=== PATIENT | female | born 2000 | race Caucasian/White ===

== ENCOUNTER 2022-02-11 23:36 | Emergency (ER) | payer MEDICAID, SELFPAY ==
[2022-02-12 00:01] VITALS: BP 135/90; PULSE 124; RESP 20; TEMP 36.7; O2SAT 99; BMI 24.1
--- NOTE | 2022-02-12 00:16 | CRLHL7_ITS ---
For Patients: As a result of the Cures Act, medical imaging exams and procedure reports are released immediately into your electronic medical record. You may view this report before your referring provider. If you have questions, please contact your health care provider. INDICATION: Cough. TECHNIQUE: PA and lateral views of the chest. COMPARISON: None. FINDINGS: Normal heart size. Pulmonary vasculature is unremarkable. There are multiple lung masses (1 on the right and at least 2 on the left), which are concerning for metastatic disease. No pleural fluid or pneumothorax. IMPRESSION: Multiple lung masses are noted, which is concerning for metastatic disease. Dictated by Brett Leonardo MD @ 02/12/2022 2:18:48 AM (Electronically Signed)
--- NOTE | 2022-02-12 00:16 | CRLHL7_ITS ---
For Patients: As a result of the Century Cures Act, medical imaging exams and procedure reports are released immediately into your electronic medical record. You may view this report before your referring provider. If you have questions, please contact your health care provider. INDICATION: Pain. TECHNIQUE: Noncontrast axial images with sagittal and coronal reconstructions. COMPARISON: No prior CT. FINDINGS: Lower chest: Normal heart size. No pericardial effusion. Multiple lung masses, with the largest in the left lower lobe measuring 4.3 x 6.1 cm. Abdomen and pelvis: There is a large solid and cystic mass arising from the left kidney, measuring approximately 10 x 15 x 13 cm. This is likely related to a primary malignancy. The unenhanced liver, spleen, pancreas, adrenal glands and right kidney appear unremarkable. No calcified stones in the gallbladder. No significant bile duct dilatation. Normal caliber abdominal aorta. No abnormally dilated bowel to suggest obstruction. Normal appendix. Unremarkable urinary bladder. Uterus is present. No appreciable adnexal mass. Bones: No suspicious bony lesions. IMPRESSION: 1. Large left renal mass measuring up to 15 cm, likely related to a primary malignancy. 2. Multiple masses are seen the lung bases, likely related to metastatic disease. Please note that all CT scans at this facility use dose modulation, iterative reconstruction, and/or weight-based dosing when appropriate to reduce radiation dose to as low as reasonably achievable. Dictated by Brett Leonardo MD @ 02/12/2022 3:20:23 AM (Electronically Signed)
--- NOTE | 2022-02-12 00:17 | ED.GENADULT ---
HPI - General Adult General Time Seen by Provider: 00:17 Date Seen: 02/12/22 Chief complaint: Cough Stated complaint: BACK PAIN THROUGH ABDOMEN,ASTHMA Time Seen by Provider: 02/12/22 00:00 Source: patient Mode of arrival: ambulatory Limitations: no limitations History of Present Illness HPI narrative: 21-year-old female who comes in today with multiple concerns. She reports left-sided back pain which is been going on for a while but worse in last couple days and now radiating to the abdomen. Pain is constant with no relieving or exacerbating factors. She denies urinary symptoms including hematuria, last bowel movement was yesterday. Also reports a cough for about a week, nonproductive. She has a history of asthma, had a cold with sore throat at the beginning of this. No chest pain, some shortness of breath with activity. She has had a history of asthma for which she takes montelukast, albuterol, and is on allergy medications. Last period was couple of weeks ago. Denies lower extremity swelling. Related Data Home Medications Medication Instructions Recorded Confirmed MQ-LX-mohmhe/VC-hjczxy-iodwfqz 2 cap PO PRN 02/12/22 10-5-325mg(d)/15-325-6.25mg capsules (Vicks DayQuil-NyQuil) Mucinex 02/12/22 albuterol sulfate 90 mcg/actuation 2 inh inhalation Q4-6H PRN 02/12/22 02/12/22 aerosol inhaler loratadine 10 mg tablet (Claritin) 10 mg PO DAILY 02/12/22 02/12/22 montelukast 10 mg tablet 10 mg PO DAILY 02/12/22 02/12/22 phenylephrine 5 2 cap PO PRN 02/12/22 mg-dextromethorphan 10 mg-acetaminophen 325 mg capsule (Vicks DayQuil Cold and Flu Relief) Previous Rx's Medication Instructions Recorded benzonatate 200 mg capsule 200 mg PO TID #15 caps 02/12/22 Allergies Allergy/AdvReac Type Severity Reaction Status Date / Time No Known Drug Allergies Allergy Verified 02/12/22 00:09 [facility] Medical History (Updated 02/12/22 @ 02:37 by Lee Juarez MD) Asthma Iron deficiency anemia Scoliosis Social History Smoking Status: Never smoker Do you use any of these nicotine containing products: None Second hand tobacco smoke exposure: No How often do you have a drink containing alcohol: never AUDIT-C Alcohol total score: 0 Non-prescribed substance use: denies use service: No Exam Narrative: Exam Narrative: General: Well-developed and well-nourished, no acute distress Head: Atraumatic and normocephalic Eyes: Pupils are equal reactive, extraocular motions intact, conjunctiva clear ENT: External nose and ears are normal, posterior pharynx without erythema or exudate Neck: No midline cervical tenderness, full spontaneous range of motion the neck, trachea midline, no adenopathy Heart: Tachycardic but regular Lungs: Clear to auscultation bilaterally without wheezes or crackles Abdomen: Mildly distended, left flank tenderness as well as left-sided abdominal tenderness, ?mass on left, no right upper quadrant or right lower quadrant tenderness Musculoskeletal: No tenderness, deformity, or edema Neurologic: Awake, alert, and oriented x3, no gross focal neurologic deficits, cranial nerves intact as tested Psych: Mood and affect are appropriate Skin: No rashes Const: Vital Signs, click to edit/add: Vital Signs - 24 hr 02/12/22 00:01 Temperature 98.1 F Pulse Rate [Left P ulse Oximeter] 124 H Respiratory Rate 20 Blood Pressure [Ri ght Upper Arm] 135/90 H Pulse Oximetry 99 Oxygen Delivery Me thod Room Air Course Course Hospital Course: Patient seen and examined, prior records reviewed. Patient presents with cough as well as left flank and left-sided abdominal pain. On exam, she is tachycardic but not hypoxic. Lungs are clear, concern the cough could be related to her asthma, given tachycardia pulmonary embolism or pneumonia also possible. Chest x-ray and labs ordered. Left flank pain and left-sided abdominal tenderness, could represent kidney stone, constipation also possibility, concern for left-sided abdominal mass on exam. No right-sided tenderness to suggest acute appendicitis or acute cholecystitis. Consider also ovarian cyst with or without rupture, ectopic . Labs and CT scan ordered. IV fluids and Toradol initiated. Reevaluation(s) Reevaluation #1: Labs show anemia which is chronic for the patient by her report, no leukocytosis. Please include views through, test is negative. D-dimer is pending. EKG is reassuring and heart rate has improved. Time: 01:15 Reevaluation #2: Chest x-ray personally reviewed by me demonstrates multiple solid masses in both lungs. Additionally, there is a large mass in the left abdomen that appears to arise from the left kidney, concern for renal tumor. D-dimer is elevated. Concern for malignancy, CT scan of the chest is ordered. Time: 01:30 Reevaluation #3: Updated patient regarding findings on CTs and x-ray. Review of the CT with contrast does appear to show a tumor arising from the left kidney as well as the previously seen pulmonary masses. Radiology interpretations are pending. Time: 02:09 Additional Reevaluation(s): 3:27 a.m. radiology interpretation of the CT with contrast is still pending, interpretation of the noncontrast CT agrees my initial interpretation of large left renal mass related to primary malignancy with metastatic disease in the lung bases bilaterally. Waiting for call back from [facility] doctor md/medical director of the day to discuss possible transfer. 4:03 a.m. rechecked with male, apparently CT images have not arrived. Contacted Radiology to have them recent imaging. 4:[address] Hannah, male clinical coordinator will contact the patient Saturday to schedule follow-up. Patient will need biopsy and then oncology appointment. Discussed this with the patient, she verbalized understanding. I am going to give her dose of steroid to hopefully help some of her cough and sent her home with Brandi Meyer. Vital Signs Vital signs: Initial Vital Signs Temperature 98.1 F 02/12/22 00:01 Temperature Source Temporal Artery Scan 02/12/22 00:01 Pulse Rate 124 H 02/12/22 00:01 Pulse Rhythm 02/12/22 00:01 Respiratory Rate 20 02/12/22 00:01 Blood Pressure 135/90 H 02/12/22 00:01 Blood Pressure Mean 105 02/12/22 00:01 Blood Pressure Position Semi-Fowlers 02/12/22 00:01 Pulse Oximetry 99 02/12/22 00:01 Oxygen Delivery Method 02/12/22 00:01 Vital Signs Temperature 98.1 F 02/12/22 00:01 Pulse Rate 124 H 02/12/22 00:01 Respiratory Rate 20 02/12/22 00:01 Blood Pressure 135/90 H 02/12/22 00:01 Pulse Oximetry 99 02/12/22 00:01 Oxygen Delivery Method 02/12/22 00:01 Temperature 98.1 F 02/12/22 00:01 Pulse Rate 124 H 02/12/22 00:01 Respiratory Rate 20 02/12/22 00:01 Blood Pressure 135/90 H 02/12/22 00:01 Pulse Oximetry 99 02/12/22 00:01 Oxygen Delivery Method 02/12/22 00:01 Medical Decision Making Lab Data Labs: Lab Results 02/12/22 02/12/22 02/12/22 Range/Units 00:35 00:35 00:35 WBC 10.21 (4.50-11.00) K/uL RBC 4.42 (4.00-5.20) m/uL Hgb 10.2 L (12.0-16.0) gm/dL Hct 33.0 (33.0-51.0) % MCV 75 L (80-100) fL MCH 23 L (26-34) pg MCHC 31 L (32-36) gm/dL RDW Coeff of Audra 14.8 (11.5-15.5) % Plt Count 284 (140-440) K/uL Neut % (Auto) 70.8 (42.0-72.0) % Lymph % (Auto) 19.0 L (20-44) % [place] % (Auto) 6.9 (0.0-11.0) % Eos % (Auto) 2.3 (0.0-7.0) % Baso % (Auto) 0.3 (0.0-3.0) % Neut # (Auto) 7.24 H (1.7-7.0) K/uL Lymph # (Auto) 1.90 (0.90-2.90) K/uL [place] # (Auto) 0.70 (0.00-0.90) K/UL Eos # (Auto) 0.23 (0.00-0.50) K/uL Baso # (Auto) 0.03 (0.00-0.30) K/uL Abs Immat Gran (auto) 0.07 (0.00-0.30) K/uL D-Dimer Quant (PE/DVT) 3.55 H (0.00-0.50) ug/ml Sodium 138 (135-149) mmol/L Potassium 3.5 L (3.6-5.1) mmol/L Chloride 101 (96-114) mmol/L Carbon Dioxide 26 (20-32) mmol/L BUN 11 (5-24) mg/dL Creatinine 0.8 (0.6-1.2) mg/dL Estimated Creat Clear 101.78 Estimated GFR 109 ml/min Glucose 113 (60-115) mg/dL Calcium 9.1 (8.7-10.8) mg/dL HCG, Qual (Negative) 02/12/22 Range/Units 00:35 WBC (4.50-11.00) K/uL RBC (4.00-5.20) m/uL Hgb (12.0-16.0) gm/dL Hct (33.0-51.0) % MCV (80-100) fL MCH (26-34) pg MCHC (32-36) gm/dL RDW Coeff of Audra (11.5-15.5) % Plt Count (140-440) K/uL Neut % (Auto) (42.0-72.0) % Lymph % (Auto) (20-44) % [place] % (Auto) (0.0-11.0) % Eos % (Auto) (0.0-7.0) % Baso % (Auto) (0.0-3.0) % Neut # (Auto) (1.7-7.0) K/uL Lymph # (Auto) (0.90-2.90) K/uL [place] # (Auto) (0.00-0.90) K/UL Eos # (Auto) (0.00-0.50) K/uL Baso # (Auto) (0.00-0.30) K/uL Abs Immat Gran (auto) (0.00-0.30) K/uL D-Dimer Quant (PE/DVT) (0.00-0.50) ug/ml Sodium (135-149) mmol/L Potassium (3.6-5.1) mmol/L Chloride (96-114) mmol/L Carbon Dioxide (20-32) mmol/L BUN (5-24) mg/dL Creatinine (0.6-1.2) mg/dL Estimated Creat Clear Estimated GFR ml/min Glucose (60-115) mg/dL Calcium (8.7-10.8) mg/dL HCG, Qual Negative (Negative) Imaging Data Chest x-ray: Attestation: I have reviewed the pertinent imaging results. CT scan - abdomen: Attestation: I have reviewed the pertinent imaging results. ECG Data Attestation: I personally reviewed and interpreted this ECG as follows: Prior ECG tracings: not available for review Interpretation: Performed at 1:12 a.m. demonstrates sinus rhythm rate 102, no acute ST elevations or depressions, normal intervals, normal axis, QTC 424, MO 116. No prior for comparison. Discharge Plan Discharge Clinical Impression: Lung metastases, Renal neoplasm Patient Disposition: Home, Self-Care Condition: Stable Additional Instructions: Your CT scan shows a mass on the left kidney as well as some tumors in the lungs. This likely represents a renal cancer with metastases into the lungs. You will need to follow-up for biopsy of this mass as well as evaluation by Oncology. [facility] will call you on Saturday to arrange these appointments. Activity Level: No Restrictions Discharge Diet: Regular Prescriptions: New benzonatate 200 mg capsule 200 mg PO TID Qty: 15 0RF No Action loratadine [Claritin] 10 mg tablet 10 mg PO DAILY montelukast 10 mg tablet 10 mg PO DAILY Vicks DayQuil Cold-Flu Relief 5-10-325 mg capsule 2 cap PO PRN Vicks DayQuil-NyQuil 10-5-325mg(d)/ 15-325-6.25mg capsule, sequential 2 cap PO PRN Mucinex albuterol sulfate 90 mcg/actuation HFA aerosol inhaler 2 inh inhalation Q4-6H PRN Stand Alone Forms: [facility] Info Instructions
[2022-02-12] MEDS: 0.9 % SODIUM CHLORIDE 1000 ml 1,000 ML IV (00:35)
[2022-02-12] MEDS: KETOROLAC 15 MG/ML inj IVP (00:36)
[2022-02-12 00:51] LABS: Basophils Absolute Auto 0.03 K/uL (0.00-0.30); Basophils Percent Auto 0.3 % (0.0-3.0); Eosinophils Absolute Auto 0.23 K/uL (0.00-0.50); Eosinophils Percent Auto 2.3 % (0.0-7.0); Hemoglobin* 10.2 gm/dL (12.0-16.0); Immature Granulocytes Abs Auto 0.07 K/uL (0.00-0.30); Mean Corpuscular HGB Conc 31 gm/dL (32-36); Mean Corpuscular Hemoglobin 23 pg (26-34); Mean Corpuscular Volume 75 fL (80-100); Monocytes Percent Auto 6.9 % (0.0-11.0); Neutrophils Absolute Auto 7.24 K/uL (1.7-7.0); Neutrophils Percent Auto 70.8 % (42.0-72.0); Platelet Count* 284 K/uL (140-440); RDW Coefficient of Variation % 14.8 % (11.5-15.5); Red Blood Count 4.42 m/uL (4.00-5.20); White Blood Count* 10.21 K/uL (4.50-11.00)
[2022-02-12 00:53] LABS: Slide Review Reflex No
[2022-02-12 01:04] LABS: Chloride* 101 mmol/L (96-114); Potassium* 3.5 mmol/L (3.6-5.1); Sodium* 138 mmol/L (135-149)
[2022-02-12 01:07] LABS: Blood Urea Nitrogen* 11 mg/dL (5-24); Carbon Dioxide* 26 mmol/L (20-32); Creatinine* 0.8 mg/dL (0.6-1.2); Est. Creatinine Clearance* 101.78; Estimated Glomerular Filt Rate 109 ml/min
[2022-02-12 01:08] LABS: Calcium* 9.1 mg/dL (8.7-10.8); Glucose* 113 mg/dL (60-115)
[2022-02-12 01:09] LABS: HCG Qualitative Serum* Negative (Negative)
[2022-02-12 01:13] LABS: D Dimer Quantitative* 3.55 ug/ml (0.00-0.50)
--- NOTE | 2022-02-12 01:33 | CRLHL7_ITS ---
For Patients: As a result of the Century Cures Act, medical imaging exams and procedure reports are released immediately into your electronic medical record. You may view this report before your referring provider. If you have questions, please contact your health care provider. INDICATION: Lung masses and left kidney mass. TECHNIQUE: Axial images. Sagittal and coronal reconstructions. 95 mL Isovue-370 IV contrast. COMPARISON: Noncontrast CT of the abdomen and pelvis from earlier today. FINDINGS: Chest: Normal heart size. No pericardial effusion. Normal caliber thoracic aorta. No acute pulmonary embolus is identified. Multiple pulmonary masses are again noted. Single mass is seen on the right, in the lower lobe, measuring 2.1 x 2.5 cm. Multiple masses are seen on the left with the largest in the left lower lobe measuring 5.3 x 5.7 cm. No pleural fluid. No suspicious bony lesions. Abdomen and pelvis: The liver, gallbladder and bile ducts, spleen, pancreas, adrenal glands and right kidney are unremarkable. There is a large solid and cystic mass in the left kidney, measuring approximately 10 x 15 cm on axial image 48. This extends for approximately 15 cm in craniocaudal dimension. Normal caliber abdominal aorta. No abnormally dilated bowel. No free air. Trace free fluid in the pelvis. A few borderline enlarged left para-aortic lymph nodes are noted. No urinary bladder wall thickening or mass. Uterus is present. No suspicious adnexal mass by CT. No suspicious bony lesions. IMPRESSION: 1. There is a large left renal mass measuring up to 15 cm, which is likely related to a primary malignancy. 2. Multiple pulmonary masses are noted, likely related to metastatic disease. 3. Borderline enlarged left para-aortic lymph nodes are nonspecific. Please note that all CT scans at this facility use dose modulation, iterative reconstruction, and/or weight-based dosing when appropriate to reduce radiation dose to as low as reasonably achievable. Dictated by Brett Leonardo MD @ 02/12/2022 3:39:36 AM (Electronically Signed)
--- NOTE | 2022-02-12 02:00 | ED.NURSE ---
in to discuss test results.
--- NOTE | 2022-02-12 04:36 | ED.NURSE ---
MD guardado cancelling dexamethasone.
== END 2022-02-12 04:37 | disposition home or self-care (01) ==
PROVIDERS: Emergency Provider Family Medicine
DX: D41.00 Neoplasm of uncertain behavior of unspecified kidney (principal); C78.02 Secondary malignant neoplasm of left lung; C78.01 Secondary malignant neoplasm of right lung
CPT/HCPCS: 36415; 71046; 71260; 74176; 74177; 80048; 81001; 84703; 85025; 85379; 93005; 96374; 99285; J1885; J7030; Q9967

== ENCOUNTER 2022-02-16 20:16 | Emergency (ER) | payer MEDICAID, SELFPAY ==
[2022-02-16 20:39] VITALS: BP 137/86; PULSE 143; RESP 18; TEMP 38.6; O2SAT 99; BMI 22.0
--- NOTE | 2022-02-16 21:41 | CRLHL7_ITS ---
For Patients: As a result of the Century Cures Act, medical imaging exams and procedure reports are released immediately into your electronic medical record. You may view this report before your referring provider. If you have questions, please contact your health care provider. INDICATION: Postprocedural cough. Pulmonary masses. TECHNIQUE: CT chest without contrast. COMPARISON: 02/12/2022. FINDINGS: Lungs and pleura: Multiple pulmonary masses again demonstrated are unchanged in size and number. No new or enlarging masses. No pleural effusions, pleural thickening, or pneumothorax. Heart and vasculature: Heart size is normal. Thoracic aorta and pulmonary artery are normal in caliber. Lymph nodes/mediastinum: No mediastinal, hilar, or axillary adenopathy. Chest wall: No masses. Upper abdomen: Large left renal mass again demonstrated.. Bones: Unremarkable for age. IMPRESSION: 1. No postprocedural complications. 2. No acute pulmonary infiltrates and no pneumothorax. No new abnormality to explain cough. 3. Unchanged multiple pulmonary masses and large left renal mass. Please note that all CT scans at this facility use dose modulation, iterative reconstruction, and/or weight-based dosing when appropriate to reduce radiation dose to as low as reasonably achievable. Dictated by Kendall Oconnell MD @ 02/16/2022 11:40:59 PM (Electronically Signed)
--- NOTE | 2022-02-16 22:03 | ED.GENADULT ---
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 Pt had what she describes as a lung biopsy at [place] today and now has fever tachycardia and cant stop coughing. Pt has been eating and drinking without any trouble. No abd pain. No dysuria or hematuria. No overt pain. Pt otherwise feels well but has not received her biopsy results yet. No hemoptysis. Related Data Home Medications Medication Instructions Recorded Confirmed [id number] 2 cap PO PRN 02/12/22 10-5-325mg(d)/15-325-6.25mg capsules (Vicks DayQuil-NyQuil) Mucinex 02/12/22 albuterol sulfate 90 mcg/actuation 2 inh inhalation Q4-6H PRN 02/12/22 02/16/22 aerosol inhaler loratadine 10 mg tablet (Claritin) 10 mg PO DAILY 02/12/22 02/16/22 montelukast 10 mg tablet 10 mg PO DAILY 02/12/22 02/16/22 phenylephrine 5 2 cap PO PRN 02/12/22 mg-dextromethorphan 10 mg-acetaminophen 325 mg capsule (Vicks DayQuil Cold and Flu Relief) hydrocodone 5 mg-acetaminophen 325 tab 02/16/22 mg tablet Previous Rx's Medication Instructions Recorded benzonatate 200 mg capsule 200 mg PO TID #15 caps 02/12/22 Allergies Allergy/AdvReac Type Severity Reaction Status Date / Time Iodinated Contrast Media Allergy Intermediate Difficulty Verified 02/16/22 22:46 Breathing Review of Systems Status of ROS: Reports: 10 or more systems reviewed and unremarkable except as noted in History and below [facility] Medical History (Updated 02/17/22 @ 02:07 by Wellington Valdez MD) Asthma Iron deficiency anemia Renal mass Scoliosis Social History Smoking Status: Never smoker Do you use any of these nicotine containing products: None Second hand tobacco smoke exposure: No How often do you have a drink containing alcohol: never AUDIT-C Alcohol total score: 0 Non-prescribed substance use: denies use service: No Exam Narrative: Exam Narrative: EXAM GENERAL: Patient appears comfortable and well. EYES: No scleral icterus. THYROID: no thyroid nodules or thyromegaly. LYMPH: No supraclavicular or cervical lymphadenopathy. SKIN: Visible skin seen during exam normal or with benign process only. EXT: No dependent lower extremity pedal edema. HEART: Regular rate and rhythm with no murmurs, rubs, or gallops. LUNGS: Scattered rhonchi bilaterally. ABD: Soft, non tender, non distended. PSYCH: Good eye contact, speech is not pressured. Const: Vital Signs, click to edit/add: Vital Signs - 24 hr 02/16/22 20:39 02/16/22 23:28 02/17/22 00:02 Temperature 101.5 F H 101.2 F H Pulse Rate [Left P ulse Oximeter] 143 H 120 H Respiratory Rate 18 18 Blood Pressure [Ri ght Upper Arm] 137/86 138/90 H Pulse Oximetry 99 98 Oxygen Delivery Me thod Room Air Room Air 02/16/22 23:30 02/17/22 00:00 02/17/22 00:30 Temperature Pulse Rate [Left P ulse Oximeter] 116 H 126 H 114 H Respiratory Rate 18 18 18 Blood Pressure [Ri ght Upper Arm] 129/85 139/92 H 137/90 H Pulse Oximetry 98 98 98 Oxygen Delivery Me thod Room Air Room Air Room Air 02/17/22 01:00 02/17/22 01:30 Temperature Pulse Rate [Left P ulse Oximeter] 117 H 119 H Respiratory Rate Blood Pressure [Ri ght Upper Arm] 147/94 H 135/93 H Pulse Oximetry 98 98 Oxygen Delivery Me thod Room Air Room Air Course Course Hospital Course: Patient started on IV fluids. With cultures x2 collected. Lactate CBC basic metabolic and CT of the chest Reevaluation(s) Reevaluation #1: I have been very concerned about the patients tachycardia and fever. WBC is elevated. CT of the chest without as pt is allergic to contrast shows no new findings. Blood cultures collected. Questionable UTI noted. IV hydration was started due to concern for Sepsis. Spoke with CT surgery at [place] and then Peds Onc. Peds Onc requests IV Zosyn be given and pt to be transferred via Ambulance to [facility]. Time: 01:59 Vital Signs Vital signs: Initial Vital Signs Temperature 101.5 F H 02/16/22 20:39 Temperature Source Temporal Artery Scan 02/16/22 20:39 Pulse Rate 143 H 02/16/22 20:39 Respiratory Rate 18 02/16/22 20:39 Blood Pressure 137/86 02/16/22 20:39 Blood Pressure Mean 103 02/16/22 20:39 Blood Pressure Position Sitting 02/16/22 20:39 Pulse Oximetry 99 02/16/22 20:39 Oxygen Delivery Method 02/16/22 20:39 Vital Signs Temperature 101.5 F H 02/16/22 20:39 Pulse Rate 143 H 02/16/22 20:39 Respiratory Rate 18 02/16/22 20:39 Blood Pressure 137/86 02/16/22 20:39 Pulse Oximetry 99 02/16/22 20:39 Oxygen Delivery Method 02/16/22 20:39 Temperature 101.2 F H 02/17/22 00:02 Pulse Rate 119 H 02/17/22 01:30 Respiratory Rate 18 02/17/22 00:30 Blood Pressure 135/93 H 02/17/22 01:30 Pulse Oximetry 98 02/17/22 01:30 Oxygen Delivery Method 02/17/22 01:30 Medical Decision Making MDM Narrative Medical decision making narrative: Pt with a recently diagnosed Renal Cancer who had a lung biopsy earlier in the day presents with cough, fever and tachycardia. Treated with fluid bolus, cultures and Zosyn. Transferred back to [place] under the care of Peds Onc. Unable to do PE study due to Contrast Allergy. Differential Diagnosis Differential Diagnosis: PE, Pneumonia, Sepsis, Cancer Fever, UTI Lab Data Labs: Lab Results 02/16/22 02/16/22 02/16/22 Range/Units 22:23 22:23 22:23 WBC 12.28 H (4.50-11.00) K/uL RBC 4.42 (4.00-5.20) m/uL Hgb 10.3 L (12.0-16.0) gm/dL Hct 32.8 L (33.0-51.0) % MCV 74 L (80-100) fL MCH 23 L (26-34) pg MCHC 31 L (32-36) gm/dL RDW Coeff of Audra 14.5 (11.5-15.5) % Plt Count 312 (140-440) K/uL Neut % (Auto) 81.7 H (42.0-72.0) % Lymph % (Auto) 12.1 L (20-44) % Taney % (Auto) 5.5 (0.0-11.0) % Eos % (Auto) 0.3 (0.0-7.0) % Baso % (Auto) 0.2 (0.0-3.0) % Neut # (Auto) 10.00 H (1.7-7.0) K/uL Lymph # (Auto) 1.50 (0.90-2.90) K/uL Taney # (Auto) 0.70 (0.00-0.90) K/UL Eos # (Auto) 0.00 (0.00-0.50) K/uL Baso # (Auto) 0.00 (0.00-0.30) K/uL Abs Immat Gran (auto) 0.03 (0.00-0.30) K/uL Sodium 135 (135-149) mmol/L Potassium 4.2 (3.6-5.1) mmol/L Chloride 98 (96-114) mmol/L Carbon Dioxide 25 (20-32) mmol/L BUN 7 (5-24) mg/dL Creatinine 0.9 (0.6-1.2) mg/dL Estimated Creat Clear 90.47 Estimated GFR 94 ml/min Glucose 86 (60-115) mg/dL Calcium 8.9 (8.7-10.8) mg/dL Urine Color Yellow (Yellow) Urine Appearance Turbid A (Clear) Urine pH 6.5 (5.0-8.5) Ur Specific Hoskins 1.010 (1.000-1.030) Urine Protein Trace A (Negative) Urine Glucose (UA) Negative (Negative) Urine Ketones 3+ A (Negative) Urine Blood 3+ A (Negative) Urine Nitrite Negative (Negative) Urine Bilirubin Negative (Negative) Urine Urobilinogen 0.2 (0.2-1.0) Ur Leukocyte Esterase Trace A (Negative) Urine RBC 2-5 A (0-2) Urine WBC 10-25 A (0-5) Ur Squamous Epith Cells None (None-Few) Urine Bacteria None (None) SARS-CoV-2 (PCR) (Negative) 09/10/22 Range/Units 00:20 WBC (4.50-11.00) K/uL RBC (4.00-5.20) m/uL Hgb (12.0-16.0) gm/dL Hct (33.0-51.0) % MCV (80-100) fL MCH (26-34) pg MCHC (32-36) gm/dL RDW Coeff of Audra (11.5-15.5) % Plt Count (140-440) K/uL Neut % (Auto) (42.0-72.0) % Lymph % (Auto) (20-44) % Taney % (Auto) (0.0-11.0) % Eos % (Auto) (0.0-7.0) % Baso % (Auto) (0.0-3.0) % Neut # (Auto) (1.7-7.0) K/uL Lymph # (Auto) (0.90-2.90) K/uL Taney # (Auto) (0.00-0.90) K/UL Eos # (Auto) (0.00-0.50) K/uL Baso # (Auto) (0.00-0.30) K/uL Abs Immat Gran (auto) (0.00-0.30) K/uL Sodium (135-149) mmol/L Potassium (3.6-5.1) mmol/L Chloride (96-114) mmol/L Carbon Dioxide (20-32) mmol/L BUN (5-24) mg/dL Creatinine (0.6-1.2) mg/dL Estimated Creat Clear Estimated GFR ml/min Glucose (60-115) mg/dL Calcium (8.7-10.8) mg/dL Urine Color (Yellow) Urine Appearance (Clear) Urine pH (5.0-8.5) Ur Specific Hoskins (1.000-1.030) Urine Protein (Negative) Urine Glucose (UA) (Negative) Urine Ketones (Negative) Urine Blood (Negative) Urine Nitrite (Negative) Urine Bilirubin (Negative) Urine Urobilinogen (0.2-1.0) Ur Leukocyte Esterase (Negative) Urine RBC (0-2) Urine WBC (0-5) Ur Squamous Epith Cells (None-Few) Urine Bacteria (None) SARS-CoV-2 (PCR) Negative SARS-CoV-2 (Negative) Discharge Plan Discharge Clinical Impression: Fever Condition: Stable Instructions: Fever in Adults (ED) Activity Level: No Restrictions Discharge Diet: Other Prescriptions: No Action loratadine [Claritin] 10 mg tablet 10 mg PO DAILY montelukast 10 mg tablet 10 mg PO DAILY Vicks DayQuil Cold-Flu Relief 5-10-325 mg capsule 2 cap PO PRN Vicks DayQuil-NyQuil 10-5-325mg(d)/ 15-325-6.25mg capsule, sequential 2 cap PO PRN Mucinex albuterol sulfate 90 mcg/actuation HFA aerosol inhaler 2 inh inhalation Q4-6H PRN benzonatate 200 mg capsule 200 mg PO TID Qty: 15 0RF hydrocodone-acetaminophen 5-325 mg tablet Follow Up/Referrals: Provider,Not a Local [Primary Care Provider] - Stand Alone Forms: MyHealth Info Instructions
[2022-02-16 22:42] LABS: Basophils Percent Auto 0.2 % (0.0-3.0); Eosinophils Percent Auto 0.3 % (0.0-7.0); Hematocrit 32.8 % (33.0-51.0); Hemoglobin* 10.3 gm/dL (12.0-16.0); Immature Granulocytes Abs Auto 0.03 K/uL (0.00-0.30); Lymphocytes Percent Auto 12.1 % (20-44); Mean Corpuscular HGB Conc 31 gm/dL (32-36); Mean Corpuscular Hemoglobin 23 pg (26-34); Mean Corpuscular Volume 74 fL (80-100); Monocytes Percent Auto 5.5 % (0.0-11.0); Neutrophils Percent Auto 81.7 % (42.0-72.0); Platelet Count* 312 K/uL (140-440); RDW Coefficient of Variation % 14.5 % (11.5-15.5); Red Blood Count 4.42 m/uL (4.00-5.20); White Blood Count* 12.28 K/uL (4.50-11.00)
[2022-02-16 22:53] LABS: Slide Review Reflex No
[2022-02-16 22:56] LABS: Chloride* 98 mmol/L (96-114); Potassium* 4.2 mmol/L (3.6-5.1); Sodium* 135 mmol/L (135-149)
[2022-02-16 22:59] LABS: Blood Urea Nitrogen* 7 mg/dL (5-24); Calcium* 8.9 mg/dL (8.7-10.8); Carbon Dioxide* 25 mmol/L (20-32); Creatinine* 0.9 mg/dL (0.6-1.2); Est. Creatinine Clearance* 90.47; Estimated Glomerular Filt Rate 94 ml/min; Glucose* 86 mg/dL (60-115)
[2022-02-16 23:06] LABS: Appearance Urine Turbid (Clear); Bilirubin Urine Negative (Negative); Blood Urine 3+ (Negative); Color Urine Yellow (Yellow); Glucose Urine Negative (Negative); Ketones Urine 3+ (Negative); Leukocyte Esterase Urine Trace (Negative); Nitrite Urine Negative (Negative); Protein Urine Trace (Negative); Urobilinogen Urine 0.2 (0.2-1.0); pH Urine 6.5 (5.0-8.5)
[2022-02-16] MEDS: 0.9 % SODIUM CHLORIDE 500 ML 500 ML 1000 ML IV (23:25)
[2022-02-16 23:28] VITALS: BP 138/90; PULSE 120; RESP 18; O2SAT 98
[2022-02-16 23:30] VITALS: BP 129/85; PULSE 116; RESP 18; O2SAT 98
[2022-02-17] VITALS: BP 139/92; PULSE 126; RESP 18; O2SAT 98
[2022-02-17 00:02] VITALS: TEMP 38.4
[2022-02-17 00:30] VITALS: BP 137/90; PULSE 114; RESP 18; O2SAT 98
[2022-02-17 01:00] VITALS: BP 147/94; PULSE 117; O2SAT 98
[2022-02-17 01:21] LABS: SARS PCR* Negative SARS-CoV-2 (Negative)
[2022-02-17 01:30] VITALS: BP 135/93; PULSE 119; O2SAT 98
[2022-02-17] MEDS: PIPERACILLIN/TAZOBACTAM 3.375 GM in 0.9 % SODIUM CHLORIDE Mini-bag 100 ML IVPB (01:50)
[2022-02-17 02:02] VITALS: BP 148/102; PULSE 128; O2SAT 98
== END 2022-02-17 02:22 | disposition short-term general hospital (02) ==
PROVIDERS: Emergency Provider Internal Medicine
DX: R50.9 Fever, unspecified (principal); R05.9 Cough, unspecified; R00.0 Tachycardia, unspecified; C64.9 Malignant neoplasm of unspecified kidney, except renal pelvis
CPT/HCPCS: 36415; 71250; 80048; 81003; 81015; 83605; 85025; 87040; 87086; 87635; 96365; 99284; 99285; J2543; J7120

== ENCOUNTER 2022-02-17 02:12 | Outpatient (CLI) | payer MEDICAID, SELFPAY | END 2022-02-17 02:13 | disposition home or self-care (01) | PROVIDERS: Visit Provider Internal Medicine | DX: R50.9 Fever, unspecified (principal); C34.90 Malignant neoplasm of unspecified part of unspecified bronchus or lung | CPT/HCPCS: A0425; A0428 ==